=== PATIENT | female | born 1965 | race Caucasian/White ===

== ENCOUNTER 2024-06-30 20:52 | Observation (INO) ==
--- NOTE | 2024-06-30 21:33 | Emergency Department Note ---
HPI - Seizure General Chief Complaint: Seizure Stated Complaint: seizure Time Seen by Provider: 06/30/24 21:02 Source: patient and family (son) Mode of arrival: walk-in Limitations: altered mental status (Pt can answer some questions and carry on a conversation, but cannot recall the date) History of Present Illness HPI Narrative: 59-year-old female presents to the ED, accompanied by her son, with complaints of seizure-like activity that occurred approximately 1 hour prior to arrival. Son reports patient was sitting in her chair after just getting home from work and changing into her pajamas when her arms pulled up and began shaking and patient had positive loss of consciousness. En route to hospital, patient reportedly had a second episode with similar appearance and lasting ~ the same amount of time. Son states seizure activity lasted approximately 20 seconds with a period of approximately 15 minutes of confusion after seizure activity stops. Patient and son report patient has been worked up by neurology and cardiology and is currently on no medications for seizures despite having multiple episodes in the past. 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; Second episode en route to hospital, ~ 10 min [employer]OCIATE PROFESSOR [employer]IC[employer]) Description of Episode: Reports loss of consciousness, tonic-clonic movement and post-event confusion; Denies bladder incontinence or bowel incontinence Duration of episode: 20 -: Reports second(s) Witnessed: Yes - by Bystander (son) Trauma: Yes (mild abrasions to lower lip (son denies fall/facial trauma)) Seizure History: Yes (recurrent episodes, last March 2024, no seizure meds, has had neuro eval) Place: home (and in car) Possible Precipitating Event: Reports none Associated symptoms: Reports confusion, shortness of breath and other (lightheadedness, nausea, chills, dysuria) Treatments prior to arrival: Reports none Commercial Driving History Are you currently using a commercial loan administrator's license (CDL) as a part of your employment, either self-employed or otherwise: No 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 Related Data Allergies Allergy/AdvReac Type Severity Reaction Status Date / Time No Known Drug Allergies Allergy Verified 07/01/24 00:23 Review of Systems Status of ROS 10 or more systems reviewed and unremark able except as noted in history and below Constitutional Reports: chills and fatigue; Denies: fever Eyes Denies: change in vision, blurry vision, light sensitivity, eye discomfort or eye discharge Ears, nose, mouth, and throat Reports: nasal congestion; Denies: throat pain, neck pain, throat swelling, difficulty swallowing, hoarseness or ear pain Cardiovascular Reports: edema (anna LE edema), swelling of feet/ankles and lightheadedness; Denies: chest pain or palpitations Respiratory Reports: shortness of breath and cough (dry); Denies: wheezing, pain on inspiration or chest congestion Gastrointestinal Reports: nausea; Denies: abdominal pain, vomiting, diarrhea, constipation, change in bowel habits or blood in stool Genitourinary Reports: painful urination; Denies: urinary frequency, urinary urgency, blood in urine, difficulty voiding, decreased urine ouput or pelvic pain Musculoskeletal Reports: back pain (chronic low back pain (no change)) and extremity swelling (bilateral lower extremity edema); Denies: neck pain, extremity pain, joint pain, limited range of motion or muscle weakness Integumentary/Breast Denies: rash, itching, changes in skin color or jaundice Neurological Reports: dizziness (described as lightheadedness), difficulty communicating thoughts and seizure-like activity; Denies: headache, numbness in extremities, weakness in extremities, lack of coordination or slurred speech Psychiatric Reports: difficulty concentrating; Denies: anxiety Endocrine Reports: excessive thirst and fatigue; Denies: excessive urination Hematologic/Lymphatic Denies: easy bruising or easy bleeding Allergic/Immunologic Denies: hives, throat swelling, tongue swelling, facial swelling, wheezing, itchy eyes or seasonal allergies PFSH PFSH Medical History (Updated 06/30/24 @ 22:13 by Dior Angel APRN) Chronic UTI Chronic low back pain Sleep apnea Hypertension Seizure Surgical History (Updated 06/30/24 @ 22:13 by Dior Angel APRN) History of tubal ligation History of tonsillectomy History of hysterectomy Social History (Updated 06/30/24 @ 22:13 by Dior Angel APRN) Smoking status: never smoker Within the past year, how often did you have a drink containing alcohol: never Score interpretation: A score less than 3 is consistent with normal alcohol consumption. Non-prescribed substance use: denies use What is your current living situation: I presently have a place to live Problems where you live: no known problems Highest level of school completed/degree received: GED or equivalent Exam Constitutional: abnormal general appearance (disheveled), no apparent distress, abnormal body habitus (overweight), limitations noted (altered mental status) (intermittent confusion) and alert Vital Signs - 24 hr 06/30/24 20:52 06/30/24 21:00 06/30/24 21:30 Temperature 99.3 F Pulse Rate 82 78 Respiratory Rate 18 18 Blood Pressure 124/48 160/63 Pulse Oximetry 97 [address] thod Room Air Room Air Room Air 06/30/24 21:45 06/30/24 22:00 06/30/24 22:15 Temperature Pulse Rate 79 80 76 Respiratory Rate 16 18 16 Blood Pressure 169/76 153/56 123/66 Pulse Oximetry 96 [address] thod Room Air Room Air Room Air 06/30/24 22:30 06/30/24 22:45 06/30/24 23:00 Temperature Pulse Rate 68 67 66 Respiratory Rate 17 16 15 Blood Pressure 115/62 142/67 116/61 Pulse [facility] 97 96 [facility] 06/30/24 23:15 06/30/24 23:30 07/01/24 00:00 Temperature Pulse Rate 69 82 65 Respiratory Rate 18 19 15 Blood Pressure 136/69 165/77 131/64 Pulse Oximetry [address] thod Room Air Room Air Room Air HENMT: normocephalic, head/scalp traumatic (abrasion) (lower lip, superficial), hearing grossly normal bilaterally, external ears normal, TMs normal bilaterally, nasal mucous membranes abnormal (nasal discharge) (milc clear rhinorrhea), external nose normal, oral mucous membranes abnormal (dry) and oropharynx abnormal (erythema) (mild pharyngeal erythema) Eyes: PERRL, EOMs intact bilaterally, conjunctivae normal, no scleral icterus, alignment normal and periorbital findings normal Neck/C-Spine: visual inspection normal, trachea midline, cervical spine nontender, cervical full ROM noted, supple and no meningeal signs Lymph: no lymphadenopathy noted Chest: inspection of chest normal and palpation of chest normal Respiratory: breath sounds equal bilaterally, normal respiratory effort, clear to auscultation bilaterally, no wheezes, no rales and no use of accessory muscles Cardiovascular: normal heart rate noted and regular rhythm noted Gastrointestinal: abdomen normal to inspection, abdomen soft to palpation, nontender to palpation, nondistended, normoactive bowel sounds, no hepatosplenomegaly and no masses Genitourinary: CVA tenderness noted (bilateral, mild) and bladder normal to palpation Back/Pelvis: spine normal to inspection, no thoracic spine tenderness, no lumbar spine tenderness, thoracic spine ROM normal and lumbar spine ROM normal Extremities: abnormal to inspection (+2 bilateral LE edema), abnormal to palpa tion, no tenderness, full ROM and no deformity Neurology: data analytics architect II-XII intact, no movement abnormality noted, no focal motor deficit noted, no sensory deficits noted, deep tendon reflexes 2+ bilaterally, gait normal, speech normal, coordination normal, no pronator drift noted, no fasciculations noted and GCS calculation - Eye opening: Spontaneous Verbal response: Confused (intermittently) Motor response: Obey commands Dennis Coma Scale total score: 14 Psychiatry: mental status grossly normal, orientation abnormal (disoriented to time), thought process normal, cooperative and affect normal Skin: skin color normal, no rash, wound(s) noted Reports (superficial) (abrasion to lower lip), skin turgor abnormal Reports (edematous) (bilateral LE's) and no jaundice Course Vital Signs Vital signs: Vital Signs Pulse Oximetry 97 06/30/24 20:52 Oxygen Delivery Method Room Air 06/30/24 20:52 Temperature 99 F 07/01/24 01:30 Pulse Rate 69 07/01/24 01:30 Respiratory Rate 14 07/01/24 01:30 Blood Pressure 118/75 07/01/24 01:30 Pulse Oximetry 97 07/01/24 01:30 Oxygen Delivery Method Room Air 07/01/24 01:00 MDM - Seizure MDM Narrative Medical decision making narrative: Pt with 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 Also, pt reports she has been seen by both cardiology and neurology for similar episodes in the past and states she was never put on any medication. A third seizure was witnessed while in ED. 1mg IV Ativan immediately stopped the seizure activity. Pt loaded with Keppra 1500mg IV. CPK is elevated which is consistent with pt having had a seizure. Troponin WNL. CBC and CMP are essentially unremarkable. UA is within normal limits except for 1+ glucose, 1+ occult blood, 2-5 RBCs, 0-2 WBCs, few epithelial cells, trace bacteria, few mucus. Urine culture pending. UDS is positive for Methadone. Pt reports she takes Methadone 10mg PO TID. Confirmed through [facility] FISHERMAN Aware. Flu, strep and COVID swabs are all negative. CT head without contrast reveals no acute intracranial abnormality. Chest x-ray reveals cardiomegaly with pulmonary vascular prominence. D Dimer is elevated at 931H. CT angio chest (PE protocol) with contrast reveals no evidence of pulmonary embolism. EKG is without evidence of acute cardiopulmonary process. I have discussed the clinical case, including pertinent positives and negatives with Janeen in utilization review, and the need for further testing/observation in the inpatient arena given patient has had 3 seizures, 2 prior to arrival and 1 witnessed in the ED, this evening. Janeen agrees patient meets criteria for for admission to observation status. I have made the patient and family aware of the current disposition plan and they are in agreement. Differential Diagnosis Differential diagnosis: Likely intractable seizure disorder, febrile convulsion, focal seizure, generalized seizure, new onset seizure, epileptic seizure, status epilepticus and other (brain mass, ICH, syncope, arrhythmia, dehydration, influenza, COVID, Strep, pulmonary embolism) Medical Records Attestation: I reviewed the patient's medical records. Lab Data Attestation: I reviewed the patient's lab results. Labs: Lab Results 06/30/24 06/30/24 Range/Units 20:55 22:45 WBC 9.2 (4.3-9.3) K/uL RBC 4.7 (4.00-5.50) M/uL Hgb 13.2 (12.5-15.8) gm/dL Hct 39.8 (35.9-46.7) % MCV 85.5 (81.0-93.7) fl MCH 28.4 (27.6-32.2) pg MCHC 33.2 (33.1-35.3) g/dl RDW 14.3 H (11.4-14.2) % Plt Count 175 (152-353) K/uL MPV 9.9 (6.9-10.8) fl Gran % 80.7 H (47.8-71.3) % Lymph % (Auto) 12.4 L (20.0-43.0) % [place] % (Auto) 5.7 (3.6-9.8) % Eos % (Auto) 0.7 (0.4-2.8) % Baso % (Auto) 0.5 (0.1-0.85) Lymph # (Auto) 1.1 (1.1-3.1) [place] # (Auto) 0.5 L (1.1-3.1) Eos # (Auto) 0.1 (0.0-0.2) Baso # (Auto) 0.0 (0.0-0.1) Absolute Gran (auto) 7.4 H (2.3-6.0) D-Dimer 931 H (100-600) ng/mL Sodium 138 (136-145) mmol/L Potassium 4.9 (3.6-5.2) mmol/L Chloride 102.0 (98-107) mmol/L Carbon Dioxide 22 (21-32) mmol/L Anion Gap 14.0 (4-14) mEq/L BUN 16 (7-18) mg/dL Creatinine 1.1 (0.6-1.3) mg/dL Estimated GFR 57.9 (>59.9) Glucose 151 H (70-110) mg/dL Calcium 8.8 (8.5-10.1) mg/dL Total Bilirubin 0.26 (0.0-1.0) mg/dL AST 26 (15-37) U/L ALT 33 (30-65) U/L Alkaline Phosphatase 87 (50-136) U/L Total Creatine Kinase 249 H (26-192) U/L Troponin I High Sens 5.50 (4.0-60.4) ng/L B-Natriuretic Peptide 126.0 H (0-100) pg/mL Total Protein 7.3 (6.4-8.2) g/dL Albumin 3.8 (3.4-5.0) g/dL Urine Color Yellow (STRAW/YELL.) Urine Appearance Clear (CLEAR) Ur Specific [place] 1.015 (1.001-1.035) Urine Protein Negative (NEGATIVE) Urine Glucose (UA) 1+ (NORMAL) Urine Ketones Negative (NEGATIVE) Urine Occult Blood 1+ (NEG - TRACE) Urine Nitrite Negative (NEGATIVE) Urine Bilirubin Negative (NEGATIVE) Urine Urobilinogen Normal (NORMAL) Ur Leukocyte Esterase Negative (NEGATIVE) Urine RBC 2 - 5 (0 - 5) Urine WBC 0 - 2 ( 0 - 5) Ur Epithelial Cells Few (Few/HPF) Amorphous Sediment Negative (Negative) Urine Bacteria Trace (Negative) Urine Mucus Few (Negative) Urine Trichomonas Negative (Negative) Urine Yeast Negative (Negative) Fluid pH 6.5 (5 - 9) Urine Opiates Screen Neg. (NEGATIVE) Urine Methadone Screen Pos. (NEGATIVE) Barbiturate Screen Neg. (NEGATIVE) Ur Phencyclidine Scrn Neg. (NEGATIVE) Amphetamines Screen Neg. (NEGATIVE) U Benzodiazepines Scrn Neg. (NEGATIVE) Urine Cocaine Screen Neg. (NEGATIVE) U Marijuana (THC) Screen Neg. (NEGATIVE) COVID-19 (ROBBI) Not detected (Not Detectd) Influenza Type A Ag Negative (Negative) Influenza Type B Ag Negative (Negative) Streptococcus Screen Negative (Negative) Imaging Data Imaging ordered: Chest x-ray, CT scan - chest (CT angio chest (PE protocol)) and CT scan - head (without contrast) Attestation: I have reviewed the pertinent imaging results. Radiologist's impression: EXAM: CT HEAD/BRAIN WO CON HISTORY: syncope vs seizuresyncope vs seizure; COMPARISON: 10/27/2023 TECHNIQUE: Multiple axial images of the head were performed from the skullbase to the vertex using standard departmental protocol. Sagittal and coronal reformatted images were performed. Dose reduction techniques including Automated Exposure Control (AEC) and adjustment of mA and kV were utilized. FINDINGS: The sulci, cisterns and ventricles are age appropriate. There is no evidence of acute territorial infarction, hemorrhage, mass, mass effect or midline shift. There are no abnormal intra-axial or extra-axial fluid collections. The visualized paranasal sinuses and mastoid air cells are predominantly clear. IMPRESSION: No evidence of acute intracranial abnormality. THIS IS AN ELECTRONICALLY VERIFIED FINAL REPORT 06/30/2024 10:13 PM - Electronically signed by Carl Calderon MD EXAM: XR CHEST 1V HISTORY: Shortness of breath COMPARISON: October 27, 2023 TECHNIQUE: 1 frontal view of the chest FINDINGS: Trachea is midline. Heart size is enlarged. There is pulmonary vascular prominence. IMPRESSION: Cardiomegaly with pulmonary vascular prominence. THIS IS AN ELECTRONICALLY VERIFIED FINAL REPORT 06/30/2024 11:25 PM - Electronically signed by Dre Putnam MD EXAM: CTA CHEST WITH CONTRAST HISTORY: SOB, Elevated D DimerSOB, Elevated D Dimer; COMPARISON: None. TECHNIQUE: Axial images were acquired of the chest with IV contrast for a CT angiogram. Coronal and sagittal images were provided. All images were reviewed in a variety of windows and levels. 3D 8 mm thick MIPS images were provided. RADIATION REDUCTION TECHNIQUE: Automated exposure control, Adjustment of the mA and/or kV according to patient size, or iterative reconstruction techniques were used. 8 mm thick axial MIPS images were provided. FINDINGS: THYROID GLAND: The thyroid gland is unremarkable. HEART AND VESSELS: The heart size is within normal limits. There is no evidence of a pericardial effusion. The thoracic aorta is normal in size without evidence of aneurysm or dissection. The main pulmonary artery size is within normal limits. There are no filling defects seen in the visualized pulmonary arteries to suggest a pulmonary embolism. LYMPHNODES: There is no evidence of axillary, mediastinal, or hilar lymphadenopathy, AIRWAY: The trachea and mainstem bronchi are patent. No intraluminal lesions are seen. LUNGS: The lungs are clear bilaterally. There is no evidence of consolidation, pleural effusion, or pneumothorax. ESOPHAGUS: The esophagus is grossly unremarkable. BONES: The visualized bones demonstrate degenerative changes. There are no concerning lytic or blastic lesions identified. UPPER ABDOMINAL STRUCTURES: The visualized portions of the upper abdominal structures are unremarkable. IMPRESSION: Negative CT pulmonary angiogram; no evidence of pulmonary embolic disease. THIS IS AN ELECTRONICALLY VERIFIED FINAL REPORT 06/30/2024 11:54 PM - Electronically signed by Carl Calderon MD ECG Data Attestation: I personally reviewed and interpreted this ECG as follows: ECG interpretation date: 06/30/24 ECG interpretation time: 22:18 Prior ECG tracings: not available for review Interpretation: Normal sinus rhythm Rate 69 RR 872 Normal P waves Normal MONTY LVH by voltage Inverted T waves in leads III, V1 Flattened T waves in leads aVF Normal QT/QTc interval Critical Care Time Critical Care Time Critical Care Time: Yes Total Critical Care Time: 50 Attestation: Workup included CBC, CMP, CPK, troponin, BNP, D-dimer, flu, strep, COVID, UA, UDS, EKG, chest x-ray, CT head without contrast, CT angio chest (PE protocol), urine culture. Patient had a total of 3 episodes of seizure activity, confirmed with elevated CPK. Patient loaded with 1500 mg IV Keppra and 1 mg IV Ativan. No further seizure activity noted. Arrangements made for patient to be admitted to observation status. Multiple updates with patient and family. Discharge Plan Discharge Patient Disposition: Admitted As Observation Condition: Improved Clinical Impression: Generalized seizure, Dysuria, Methadone dependence, Elevated d-dimer, Elevated brain natriuretic peptide (BNP) level, Glucosuria, Hematuria, Cardiomegaly Interventions: ED Discharge Assessment Last Done: 07/01/24 01:30 ED Discharge Vital Sign Last Done: 07/01/24 01:30 Emergency Department Charge Sheet Last Done: 06/30/24 23:59 Time of Disposition: 00:10 Discharge Date/Time: 07/01/24 01:30
[2024-06-30] MEDS: 0.9 % SODIUM CHLORIDE 1000 ML 1,000 ML IV STA (21:39)
[2024-06-30 21:42] LABS: Basophils%(Percent) Auto 0.5 (0.1-0.85); Eosinophils#(Absolute)Auto 0.1 (0.0-0.2); Eosinophils%(Percent) Auto 0.7 % (0.4-2.8); Granulocytes % - Auto 80.7 % (47.8-71.3); Granulocytes#(Absolute)- Auto 7.4 (2.3-6.0); Hematocrit 39.8 % (35.9-46.7); Mean Corpuscular Volume 85.5 fl (81.0-93.7); Monocytes #(Absolute)- Auto 0.5 (1.1-3.1); Monocytes %(Percent)- Auto 5.7 % (3.6-9.8); Platelet Count 175 K/uL (152-353); White Blood Count 9.2 K/uL (4.3-9.3)
[2024-06-30] MEDS: LORazepam 2 MG/ML VIAL IVP ONE (21:44)
[2024-06-30 21:55] LABS: Potassium 4.9 mmol/L (3.6-5.2)
[2024-06-30 21:58] LABS: Amphetamine Screen Urine NEG. (NEGATIVE); Cannabinoid Screen Urine NEG. (NEGATIVE); Cocaine Screen Urine NEG. (NEGATIVE); Methadone Screen Urine POS. (NEGATIVE); Opiate Screen Urine NEG. (NEGATIVE)
[2024-06-30] MEDS ORDERED: levETIRAcetam 500 MG/5 ML VIAL ONE (22:02)
[2024-06-30] MEDS ORDERED: 0.9 % SODIUM CHLORIDE 100ML 100 ML IV ONE (22:04)
[2024-06-30 22:06] LABS: PH BODY FLUID EXCP BLOOD 6.5 (5 - 9); Specific Gravity Urine 1.015 (1.001-1.035); Urine Appearance CLEAR (CLEAR); Urine Blood 1+ (NEG - TRACE); Urine Color YELLOW (STRAW/YELL.); Urine Urobilinogen Normal (NORMAL)
[2024-06-30 22:13] LABS: Urine Amorphous Sediment Negative (Negative); Urine Yeast Negative (Negative)
[2024-06-30] MEDS: SODIUM CHLORIDE 0.9% IV STA (22:20)
[2024-06-30] MEDS: LEVETIRACETAM IV STA (22:20)
[2024-07-01] MEDS ORDERED: ONDANSETRON HCL/PF 4 MG/2 ML VIAL INJ PRN (01:14)
[2024-07-01] MEDS: PANTOPRAZOLE SODIUM 40 MG TABLET.DR PO ONE (02:00)
[2024-07-01] MEDS: ACETAMINOPHEN 500 MG TABLET PO PRN (05:23)
[2024-07-01] MEDS: IBUPROFEN 400 MG TABLET PO PRN (05:24)
[2024-07-01] MEDS: levETIRAcetam 500 MG TABLET PO SCH ×2 (09:38→20:08)
[2024-07-01] MEDS: ENOXAPARIN SODIUM 40 MG/0.4 ML SYRINGE SUBQ SCH (09:38)
[2024-07-01] MEDS: 0.9 % SODIUM CHLORIDE 1000 ML 1,000 ML IV SCH (10:36)
[2024-07-01 10:51] LABS: Basophils%(Percent) Auto 0.2 (0.1-0.85); Eosinophils%(Percent) Auto 0.2 % (0.4-2.8); Granulocytes % - Auto 80.5 % (47.8-71.3); Granulocytes#(Absolute)- Auto 6.2 (2.3-6.0); Mean Corpuscular Volume 84.4 fl (81.0-93.7); Monocytes #(Absolute)- Auto 0.6 (1.1-3.1); Monocytes %(Percent)- Auto 7.4 % (3.6-9.8); Platelet Count 154 K/uL (152-353); White Blood Count 7.7 K/uL (4.3-9.3)
[2024-07-01 10:54] LABS: Potassium 3.8 mmol/L (3.6-5.2)
--- NOTE | 2024-07-01 11:39 | History & Physical Report ---
H&P: HPI History of Present Illness Chief complaint: seizure, dysuria, methadone dependence, elevated Narrative: 59-year-old female presents to the ED, accompanied by her son, with complaints of seizure-like activity that occurred approximately 1 hour prior to arrival. Son reports patient was sitting in her chair after just getting home from work and changing into her pajamas when her arms pulled up and began shaking and patient had positive loss of consciousness. En route to hospital, patient reportedly had a second episode with similar appearance and lasting ~ the same amount of time. Son states seizure activity lasted approximately 20 seconds with a period of approximately 15 minutes of confusion after seizure activity stops. Patient and son report patient has been worked up by neurology and cardiology and is currently on no medications for seizures despite having multiple episodes in the past. Patient admitted to med/surg for further observation and treatment. Review of Systems Status of ROS 10 or more systems reviewed and unremark able except as noted in history and below Constitutional Reports: chills and fatigue; Denies: fever Eyes Denies: change in vision, blurry vision, light sensitivity, eye discomfort or eye discharge Ears, nose, mouth, and throat Reports: nasal congestion; Denies: throat pain, neck pain, throat swelling, difficulty swallowing, hoarseness or ear pain Cardiovascular Reports: edema (anna LE edema), swelling of feet/ankles, lightheadedness and shortness of breath with exertion; Denies: chest pain or palpitations Respiratory Reports: shortness of breath and cough (dry); Denies: wheezing, pain on inspiration or chest congestion Gastrointestinal Reports: nausea; Denies: abdominal pain, vomiting, diarrhea, constipation, difficulty swallowing, change in bowel habits or blood in stool Genitourinary Reports: painful urination; Denies: urinary frequency, urinary urgency, blood in urine, difficulty voiding, decreased urine ouput or pelvic pain Musculoskeletal Reports: back pain (chronic low back pain (no change)) and extremity swelling (bilateral lower extremity edema); Denies: neck pain, extremity pain, joint pain, limited range of motion or muscle weakness Integumentary/Breast Denies: rash, itching, changes in skin color or jaundice Neurological Reports: dizziness (described as lightheadedness), difficulty communicating thoughts and seizure-like activity; Denies: headache, numbness in extremities, weakness in extremities, lack of coordination or slurred speech Psychiatric Reports: difficulty concentrating; Denies: anxiety Endocrine Reports: excessive thirst and fatigue; Denies: excessive urination Hematologic/Lymphatic Denies: easy bruising or easy bleeding Allergic/Immunologic Denies: hives, throat swelling, tongue swelling, facial swelling, wheezing, itchy eyes or seasonal allergies PFSH PFS Medical History (Updated 07/01/24 @ 11:36 by RUBEN Baez) Chronic UTI Chronic low back pain Sleep apnea Hypertension Seizure Surgical History (Updated 06/30/24 @ 22:13 by Dior Angel APRN) History of tubal ligation History of tonsillectomy History of hysterectomy Social History (Updated 06/30/24 @ 22:13 by Dior Angel APRN) Smoking status: never smoker Within the past year, how often did you have a drink containing alcohol: never Score interpretation: A score less than 3 is consistent with normal alcohol consumption. Non-prescribed substance use: denies use What is your current living situation: I presently have a place to live Problems where you live: no known problems Highest level of school completed/degree received: GED or equivalent Meds Home Medications and Allergies Home Medications Medication Instructions Recorded Confirmed Type acebutolol 200 mg capsule 200 mg PO BID 07/01/24 07/01/24 History hydroxyzine HCl 25 mg tablet 25 mg PO TID PRN nausea and 07/01/24 07/01/24 History vomiting lisinopril 10 mg tablet 10 mg PO DAILY 07/01/24 07/01/24 History pantoprazole 40 mg tablet,delayed 40 mg PO QAM 07/01/24 07/01/24 History release Allergies Allergy/AdvReac Type Severity Reaction Status Date / Time No Known Drug Allergies Allergy Verified 07/01/24 00:23 Exam Exam: Patient is estrada's position upon entering room for exam. Constitutional: abnormal general appearance (disheveled), no apparent distress, abnormal body habitus (obese), no limitations and alert Vital Signs - 24 hr 06/30/24 20:52 06/30/24 21:00 06/30/24 21:30 Temperature 99.3 F Pulse Rate 82 78 Pulse Rate [Bilate ral] Respiratory Rate 18 18 Blood Pressure 124/48 160/63 Blood Pressure [Le ft Radial Artery] Pulse Oximetry 97 97 97 Oxygen Delivery Me thod Room Air Room Air Room Air 06/30/24 21:45 06/30/24 22:00 06/30/24 22:15 Temperature Pulse Rate 79 80 76 Pulse Rate [Bilate ral] Respiratory Rate 16 18 16 Blood Pressure 169/76 153/56 123/66 Blood Pressure [Le ft Radial Artery] Pulse Oximetry 96 95 96 Oxygen Delivery [facility] Room Air Room Air Room Air 06/30/24 22:30 06/30/24 22:45 06/30/24 23:00 Temperature Pulse Rate 68 67 66 Pulse Rate [Bilate ral] Respiratory Rate 17 16 15 Blood Pressure 115/62 142/67 116/61 Blood Pressure [Le ft Radial Artery] Pulse Oximetry 97 96 96 Oxygen Delivery [facility] Room Air Room Air Room Air 06/30/24 23:15 06/30/24 23:30 07/01/24 00:00 Temperature Pulse Rate 69 82 65 Pulse Rate [Bilate ral] Respiratory Rate 18 19 15 Blood Pressure 136/69 165/77 131/64 Blood Pressure [Le ft Radial Artery] Pulse Oximetry 97 97 95 Oxygen Delivery [facility] Room Air Room Air Room Air 07/01/24 00:30 07/01/24 01:00 07/01/24 01:30 Temperature 99 F Pulse Rate 62 64 69 Pulse Rate [Bilate ral] Respiratory Rate 15 13 14 Blood Pressure 121/64 125/70 118/75 Blood Pressure [Le ft Radial Artery] Pulse Oximetry 96 99 97 Oxygen Delivery [facility] Room Air Room Air 07/01/24 03:53 07/01/24 08:00 Temperature 98.6 F 98.0 F Pulse Rate Pulse Rate [Bilate ral] 68 59 L Respiratory Rate 19 18 Blood Pressure Blood Pressure [Le ft Radial Artery] 100/61 116/59 Pulse Oximetry 97 97 Oxygen Delivery [facility] Room Air Room Air HENMT: normocephalic, head/scalp traumatic (abrasion) (lower lip, superficial), hearing grossly normal bilaterally, external ears normal, TMs normal bilaterally, nasal mucous membranes abnormal (nasal discharge) (milc clear rhinorrhea), external nose normal, oral mucous membranes abnormal (dry) and oropharynx abnormal (erythema) (mild pharyngeal erythema) Eyes: PERRL, EOMs intact bilaterally, conjunctivae normal, no scleral icterus, alignment normal and periorbital findings normal Neck/C-Spine: visual inspection normal, trachea midline, cervical spine nontender, cervical full ROM noted, supple and no meningeal signs Lymph: no lymphadenopathy noted Chest: inspection of chest normal and palpation of chest normal Respiratory: breath sounds equal bilaterally, normal respiratory effort, clear to auscultation bilaterally, no wheezes, no rales and no use of accessory muscles Cardiovascular: normal heart rate noted and regular rhythm noted Gastrointestinal: abdomen normal to inspection, abdomen soft to palpation, nontender to palpation, nondistended, normoactive bowel sounds, no hepatosplenomegaly and no masses Genitourinary: CVA tenderness noted (bilateral, mild) and bladder normal to palpation Back/Pelvis: spine normal to inspection, no thoracic spine tenderness, no lumbar spine tenderness, thoracic spine ROM normal and lumbar spine ROM normal Extremities: abnormal to inspection (+2 bilateral LE edema), abnormal to palpation, no tenderness, full ROM and no deformity Neurology: physical director II-XII intact, no movement abnormality noted, no focal motor deficit noted, no sensory deficits noted, deep tendon reflexes 2+ bilaterally, gait normal, speech normal, coordination normal, no pronator drift noted, no fasciculations noted and GCS calculation - Eye opening: Spontaneous Verbal response: Orientated Motor response: Obey commands Dennis Coma Scale total score: 14 Psychiatry: mental status grossly normal, orientation abnormal (disoriented to time), thought process normal, cooperative and affect normal Skin: skin color normal, no rash, wound(s) noted Reports (superficial) (lan daniel to lower lip), skin turgor abnormal Reports (edematous) (bilateral LE's) and no jaundice Assessment and Plan Assessment and Plan (1) Seizure: Code(s): R56.9 - Unspecified convulsions (2) Dysuria: Code(s): R30.0 - Dysuria (3) Methadone dependence: Code(s): F11.20 - Opioid dependence, uncomplicated (4) Elevated d-dimer: Code(s): R79.89 - Other specified abnormal findings of blood chemistry (5) Elevated brain natriuretic peptide (BNP) level: Code(s): R79.89 - Other specified abnormal findings of blood chemistry (6) Hematuria: Qualifiers: Hematuria type: unspecified type Qualified Code(s): R31.9 - Hematuria, unspecified Code(s): R31.9 - Hematuria, unspecified Plan Sodium Chloride 1,000 mls @ 200 mls/hr IV CONT Enoxaparin Sodium 40 mg SUBQ DAILY Levetiracetam 500 mg PO BID Acetaminophen 1,000 mg PO Q6H PRN Ibuprofen 600 mg PO Q8H PRN Hydrocodone Bitart/Acetaminophen 5/325 mg PO Q6H PRN Ondsetron Hcl 4 mg INJ Q6H PRN Continue to monitor labs and symptoms. Results Labs Labs: CBC WBC 7.7 K/uL (4.3-9.3) 07/01/24 10:33 RBC 4.3 M/uL (4.00-5.50) 07/01/24 10:33 Hgb 12.1 gm/dL (12.5-15.8) L 07/01/24 10:33 Hct 36.0 % (35.9-46.7) 07/01/24 10:33 MCV 84.4 fl (81.0-93.7) 07/01/24 10:33 MCH 28.3 pg (27.6-32.2) 07/01/24 10:33 MCHC 33.5 g/dl (33.1-35.3) 07/01/24 10:33 RDW 14.2 % (11.4-14.2) 07/01/24 10:33 Plt Count 154 K/uL (152-353) 07/01/24 10:33 MPV 9.5 fl (6.9-10.8) 07/01/24 10:33 Gran % 80.5 % (47.8-71.3) H 07/01/24 10:33 Lymph % (Auto) 11.7 % (20.0-43.0) L 07/01/24 10:33 [place] % (Auto) 7.4 % (3.6-9.8) 07/01/24 10:33 Eos % (Auto) 0.2 % (0.4-2.8) L 07/01/24 10:33 Baso % (Auto) 0.2 (0.1-0.85) 07/01/24 10:33 Lymph # (Auto) 0.9 (1.1-3.1) L 07/01/24 10:33 [place] # (Auto) 0.6 (1.1-3.1) L 07/01/24 10:33 Eos # (Auto) 0.0 (0.0-0.2) 07/01/24 10:33 Baso # (Auto) 0.0 (0.0-0.1) 07/01/24 10:33 Absolute Gran (auto) 6.2 (2.3-6.0) H 07/01/24 10:33 BMP Sodium 137 mmol/L (136-145) 07/01/24 10:33 Potassium 3.8 mmol/L (3.6-5.2) 07/01/24 10:33 Chloride 99.0 mmol/L (98-107) 07/01/24 10:33 Carbon Dioxide 28 mmol/L (21-32) 07/01/24 10:33 Anion Gap 10.0 mEq/L (4-14) 07/01/24 10:33 BUN 13 mg/dL (7-18) 07/01/24 10:33 Creatinine 0.9 mg/dL (0.6-1.3) 07/01/24 10:33 Estimated GFR 73.6 (>59.9) 07/01/24 10:33 Glucose 106 mg/dL (70-110) 07/01/24 10:33 Calcium 8.5 mg/dL (8.5-10.1) 07/01/24 10:33 Phosphorus 3.8 mg/dL (2.5-4.9) 07/01/24 04:20 Magnesium 2.4 mg/dL (1.8-2.4) 07/01/24 04:20 Total Bilirubin 0.38 mg/dL (0.0-1.0) 07/01/24 10:33 AST 26 U/L (15-37) 07/01/24 10:33 ALT 31 U/L (30-65) 07/01/24 10:33 Alkaline Phosphatase 65 U/L (50-136) 07/01/24 10:33 Total Protein 6.3 g/dL (6.4-8.2) L 07/01/24 10:33 Albumin 3.3 g/dL (3.4-5.0) L 07/01/24 10:33 Cardiac Enzymes Troponin I High Sens 5.50 ng/L (4.0-60.4) 06/30/24 20:55 Liver Function Total Bilirubin 0.38 mg/dL (0.0-1.0) 07/01/24 10:33 AST 26 U/L (15-37) 07/01/24 10:33 ALT 31 U/L (30-65) 07/01/24 10:33 Alkaline Phosphatase 65 U/L (50-136) 07/01/24 10:33 Total Protein 6.3 g/dL (6.4-8.2) L 07/01/24 10:33 Albumin 3.3 g/dL (3.4-5.0) L 07/01/24 10:33 Urine Urine Color Yellow (STRAW/YELL.) 06/30/24 20:55 Urine Appearance Clear (CLEAR) 06/30/24 20:55 Ur Specific [place] 1.015 (1.001-1.035) 06/30/24 20:55 Urine Protein Negative (NEGATIVE) 06/30/24 20:55 Urine Glucose (UA) 1+ (NORMAL) 06/30/24 20:55 Urine Ketones Negative (NEGATIVE) 06/30/24 20:55 Urine Occult Blood 1+ (NEG - TRACE) 06/30/24 20:55 Urine Nitrite Negative (NEGATIVE) 06/30/24 20:55 Urine Bilirubin Negative (NEGATIVE) 06/30/24 20:55 Urine Urobilinogen Normal (NORMAL) 06/30/24 20:55 Ur Leukocyte Esterase Negative (NEGATIVE) 06/30/24 20:55 Imaging Imaging ordered: Chest x-ray, CT scan - chest and CT scan - head Radiologist's impression: XR CHEST 1V Date of Service: 06/30/24 HISTORY: Shortness of breath COMPARISON: October 27, 2023 TECHNIQUE: 1 frontal view of the chest FINDINGS: Trachea is midline. Heart size is enlarged. There is pulmonary vascular prominence. IMPRESSION: Cardiomegaly with pulmonary vascular prominence. CTA CHEST WITH CONTRAST Date of Service: 06/30/24 HISTORY: SOB, Elevated D DimerSOB, Elevated D Dimer; COMPARISON: None. TECHNIQUE: Axial images were acquired of the chest with IV contrast for a CT angiogram. Coronal and sagittal images were provided. All images were reviewed in a variety of windows and levels. 3D 8 mm thick MIPS images were provided. RADIATION REDUCTION TECHNIQUE: Automated exposure control, Adjustment of the mA and/or kV according to patient size, or iterative reconstruction techniques were used. 8 mm thick axial MIPS images were provided. FINDINGS: THYROID GLAND: The thyroid gland is unremarkable. HEART AND VESSELS: The heart size is within normal limits. There is no evidence of a pericardial effusion. The thoracic aorta is normal in size without evidence of aneurysm or dissection. The main pulmonary artery size is within normal limits. There are no filling defects seen in the visualized pulmonary arteries to suggest a pulmonary embolism. LYMPHNODES: There is no evidence of axillary, mediastinal, or hilar lymphadenopathy, AIRWAY: The trachea and mainstem bronchi are patent. No intraluminal lesions are seen. LUNGS: The lungs are clear bilaterally. There is no evidence of consolidation, pleural effusion, or pneumothorax. ESOPHAGUS: The esophagus is grossly unremarkable. BONES: The visualized bones demonstrate degenerative changes. There are no co ncerning lytic or blastic lesions identified. UPPER ABDOMINAL STRUCTURES: The visualized portions of the upper abdominal structures are unremarkable. IMPRESSION: Negative CT pulmonary angiogram; no evidence of pulmonary embolic disease. CT HEAD/BRAIN WO CON Date of Service: 06/30/24 HISTORY: syncope vs seizuresyncope vs seizure; COMPARISON: 10/27/2023 TECHNIQUE: Multiple axial images of the head were performed from the skullbase to the vertex using standard departmental protocol. Sagittal and coronal reformatted images were performed. Dose reduction techniques including Automated Exposure Control (AEC) and adjustment of mA and kV were utilized. FINDINGS: The sulci, cisterns and ventricles are age appropriate. There is no evidence of acute territorial infarction, hemorrhage, mass, mass effect or midline shift. There are no abnormal intra-axial or extra-axial fluid collections. The visualized paranasal sinuses and mastoid air cells are predominantly clear. IMPRESSION: No evidence of acute intracranial abnormality.
[2024-07-01] MEDS ORDERED: hydrOXYzine HCL 25 MG TABLET PO PRN (14:00)
[2024-07-01] MEDS: polyethylene glycoL 3350 17 GM POWD.PACK PO SCH (15:06)
[2024-07-01] MEDS: lisinopriL 10 MG TABLET PO SCH (15:06)
[2024-07-01] MEDS: PANTOPRAZOLE SODIUM 40 MG TABLET.DR PO SCH (15:06)
[2024-07-01] MEDS: HYDROCODONE/ACETAMINOPHEN 5/325 MG TABLET PO PRN (17:06)
[2024-07-01] MEDS: atenoloL 50 MG TABLET PO SCH (20:08)
[2024-07-01] MEDS ORDERED: ACEBUTOLOL 200 MG PO SCH (21:00)
[2024-07-02 05:13] LABS: Basophils%(Percent) Auto 0.5 (0.1-0.85); Eosinophils%(Percent) Auto 1.2 % (0.4-2.8); Granulocytes % - Auto 63.3 % (47.8-71.3); Granulocytes#(Absolute)- Auto 2.5 (2.3-6.0); Hematocrit 31.9 % (35.9-46.7); Mean Corpuscular Volume 85.1 fl (81.0-93.7); Monocytes #(Absolute)- Auto 0.4 (1.1-3.1); Monocytes %(Percent)- Auto 9.8 % (3.6-9.8); Platelet Count 116 K/uL (152-353)
[2024-07-02 05:38] LABS: Potassium 4.7 mmol/L (3.6-5.2)
--- NOTE | 2024-07-02 12:45 | Progress Note ---
Progress Note: Subjective Subjective Interval history: Patient sitting up in bed. Nurses report no events overnight. Patient reports having a "feeling of going out" before she has what has been called a seizure. She has been to the neurologist who reports to her that "there is nothing wrong with me." Patient complains of intermittent pain to RUQ abdomen that is not new and calls it a "catch sometimes." Exam Constitutional: normal general appearance, no apparent distress, abnormal body habitus and alert Vital Signs - 24 hr 07/01/24 16:00 07/01/24 19:48 07/01/24 20:08 Temperature 98.4 F 98.6 F Pulse Rate 62 Pulse Rate [Bilate ral] 61 62 Respiratory Rate 18 17 Blood Pressure [Le ft Radial Artery] 118/55 123/58 Pulse Oximetry 99 98 Oxygen Delivery Me thod Room Air Room Air 07/01/24 21:47 07/01/24 23:59 07/02/24 04:00 Temperature 98.5 F 98.3 F Pulse Rate 64 Pulse Rate [Bilate ral] 57 L 55 L Respiratory Rate 18 16 Blood Pressure [Le ft Radial Artery] 96/45 100/58 Pulse Oximetry 96 97 Oxygen Delivery Al thod Room Air Room Air 07/02/24 07:51 07/02/24 11:50 Temperature 97.8 F 98.6 F Pulse Rate Pulse Rate [Bilate ral] 64 52 L Respiratory Rate 20 20 Blood Pressure [Le ft Radial Artery] 124/66 152/67 Pulse Oximetry 96 [facility] HENMT: normocephalic, head/scalp atraumatic, hearing grossly normal bilaterally, external ears normal and EACs normal Eyes: PERRL, EOMs intact bilaterally, conjunctivae normal, no scleral icterus and no papilledema Chest: inspection of chest normal Respiratory: breath sounds equal bilaterally, normal respiratory effort, clear to auscultation bilaterally, no wheezes and no rales Cardiovascular: normal heart rate noted, regular rhythm noted, no rub, no murmur and no JVD Gastrointestinal: abdomen normal to inspection, abdomen soft to palpation, nontender to palpation, nontender to percussion and nondistended Genitourinary: no CVA tenderness Extremities: normal to inspection, normal to palpation, no tenderness and full ROM Psychiatry: mental status grossly normal, oriented x3 and cooperative Skin: skin color normal, no rash, no lesions, no ecchymosis noted and no wound s Progress Note: Objective Labs Labs: CBC WBC 4.0 K/uL (4.3-9.3) L 07/02/24 04:50 RBC 3.7 M/uL (4.00-5.50) L 07/02/24 04:50 Hgb 10.7 gm/dL (12.5-15.8) L 07/02/24 04:50 Hct 31.9 % (35.9-46.7) L 07/02/24 04:50 MCV 85.1 fl (81.0-93.7) 07/02/24 04:50 MCH 28.5 pg (27.6-32.2) 07/02/24 04:50 MCHC 33.5 g/dl (33.1-35.3) 07/02/24 04:50 RDW 14.4 % (11.4-14.2) H 07/02/24 04:50 Plt Count 116 K/uL (152-353) L 07/02/24 04:50 MPV 9.5 fl (6.9-10.8) 07/02/24 04:50 Gran % 63.3 % (47.8-71.3) 07/02/24 04:50 Lymph % (Auto) 25.2 % (20.0-43.0) 07/02/24 04:50 [place] % (Auto) 9.8 % (3.6-9.8) 07/02/24 04:50 Eos % (Auto) 1.2 % (0.4-2.8) 07/02/24 04:50 Baso % (Auto) 0.5 (0.1-0.85) 07/02/24 04:50 Lymph # (Auto) 1.0 (1.1-3.1) L 07/02/24 04:50 [place] # (Auto) 0.4 (1.1-3.1) L 07/02/24 04:50 Eos # (Auto) 0.0 (0.0-0.2) 07/02/24 04:50 Baso # (Auto) 0.0 (0.0-0.1) 07/02/24 04:50 Absolute Gran (auto) 2.5 (2.3-6.0) 07/02/24 04:50 BMP Sodium 140 mmol/L (136-145) 07/02/24 04:50 Potassium 4.7 mmol/L (3.6-5.2) 07/02/24 04:50 Chloride 108.0 mmol/L (98-107) H 07/02/24 04:50 Carbon Dioxide 29 mmol/L (21-32) 07/02/24 04:50 Anion Gap 3.0 mEq/L (4-14) L 07/02/24 04:50 BUN 14 mg/dL (7-18) 07/02/24 04:50 Creatinine 0.9 mg/dL (0.6-1.3) 07/02/24 04:50 Estimated GFR 73.6 (>59.9) 07/02/24 04:50 Glucose 96 mg/dL (70-110) 07/02/24 04:50 Calcium 7.9 mg/dL (8.5-10.1) L 07/02/24 04:50 Phosphorus 3.1 mg/dL (2.5-4.9) 07/02/24 04:50 Magnesium 2.0 mg/dL (1.8-2.4) 07/02/24 04:50 Total Bilirubin 0.23 mg/dL (0.0-1.0) 07/02/24 04:50 AST 19 U/L (15-37) 07/02/24 04:50 ALT 27 U/L (30-65) L 07/02/24 04:50 Alkaline Phosphatase 53 U/L (50-136) 07/02/24 04:50 Total Protein 5.4 g/dL (6.4-8.2) L 07/02/24 04:50 Albumin 2.8 g/dL (3.4-5.0) L 07/02/24 04:50 Cardiac Enzymes Troponin I High Sens 5.50 ng/L (4.0-60.4) 06/30/24 20:55 Liver Function Total Bilirubin 0.23 mg/dL (0.0-1.0) 07/02/24 04:50 AST 19 U/L (15-37) 07/02/24 04:50 ALT 27 U/L (30-65) L 07/02/24 04:50 Alkaline Phosphatase 53 U/L (50-136) 07/02/24 04:50 Total Protein 5.4 g/dL (6.4-8.2) L 07/02/24 04:50 Albumin 2.8 g/dL (3.4-5.0) L 07/02/24 04:50 Urine Urine Color Yellow (STRAW/YELL.) 06/30/24 20:55 Urine Appearance Clear (CLEAR) 06/30/24 20:55 Ur Specific [place] 1.015 (1.001-1.035) 06/30/24 20:55 Urine Protein Negative (NEGATIVE) 06/30/24 20:55 Urine Glucose (UA) 1+ (NORMAL) 06/30/24 20:55 Urine Ketones Negative (NEGATIVE) 06/30/24 20:55 Urine Occult Blood 1+ (NEG - TRACE) 06/30/24 20:55 Urine Nitrite Negative (NEGATIVE) 06/30/24 20:55 Urine Bilirubin Negative (NEGATIVE) 06/30/24 20:55 Urine Urobilinogen Normal (NORMAL) 06/30/24 20:55 Ur Leukocyte Esterase Negative (NEGATIVE) 06/30/24 20:55 Progress Note: A&P Assessment and Plan (1) Seizure: (2) Dysuria: (3) Methadone dependence: (4) Elevated d-dimer: (5) Elevated brain natriuretic peptide (BNP) level: (6) Hematuria: Qualifiers: Hematuria type: unspecified type Qualified Code(s): R31.9 - Hematuria, unspecified Plan Decrease Sodium Chloride 1,000 mls @ 150 mls/hr IV CONT Enoxaparin Sodium 40 mg SUBQ DAILY Levetiracetam 500 mg PO BID Acetaminophen 1,000 mg PO Q6H PRN Ibuprofen 600 mg PO Q8H PRN Hydrocodone Bitart/Acetaminophen 5/325 mg PO Q6H PRN Ondsetron Hcl 4 mg INJ Q6H PRN Continue to monitor labs and symptoms. CPK in AM Fall Risk Details Munoz Fall Scale Risk Level: Moderate Fall Risk Current Medications: Current Medications Acetaminophen (Acetaminophen 500 Mg Tablet) 1,000 mg PO Q6H PRN PRN Reason: fever/pain Last Admin: 07/01/24 05:23 Dose: 1,000 mg Hydrocodone Bitart/Acetaminophen (Hydrocodone/Acetaminophen 5/325 Mg Tablet) 1 each PO Q6H PRN PRN Reason: chronic back pain Last Admin: 07/01/24 17:06 Dose: 1 each Atenolol (Atenolol 50 Mg Tablet) 50 mg PO BID [facility] [place] Last Admin: 07/02/24 09:45 Dose: 50 mg Enoxaparin Sodium (Enoxaparin Sodium 40 Mg/0.4 Ml Syringe) 40 mg SUBQ DAILY [facility] [place] Last Admin: 07/02/24 09:45 Dose: 40 mg Hydroxyzine HCl (Hydroxyzine Hcl 25 Mg Tablet) 25 mg PO TID PRN PRN Reason: nausea and vomiting Sodium Chloride (Sodium Chloride) 1,000 mls @ 150 mls/hr IV CONT [facility] [place] Last Admin: 07/02/24 10:37 Dose: 150 mls/hr Ibuprofen (Ibuprofen 400 Mg Tablet) 600 mg PO Q8H PRN PRN Reason: fever/pain Last Admin: 07/01/24 05:24 Dose: 600 mg Levetiracetam (Levetiracetam 500 Mg Tablet) 500 mg PO BID [facility] [place] Last Admin: 07/02/24 09:45 Dose: 500 mg Lisinopril (Lisinopril 10 Mg Tablet) 10 mg PO DAILY [facility] [place] Last Admin: 07/02/24 09:45 Dose: 10 mg Ondansetron HCl (Ondansetron Hcl/Pf 4 Mg/2 Ml Vial) 4 mg INJ Q6H PRN PRN Reason: Nausea Pantoprazole Sodium (Pantoprazole Sodium 40 Mg Tablet.) 40 mg PO QDAC [facility] [place] Last Admin: 07/02/24 06:33 Dose: 40 mg Polyethylene Glycol (Polyethylene Glycol 3350 17 Gm Powd.Pack) 17 gm PO DAILY [facility] [place] Last Admin: 07/02/24 09:45 Dose: 17 gm Time Spent With Patient Time: Total time spent is greater than 50% in coordination of care (as documented) at patient's floor/unit and/or counseling patient:
[2024-07-03] MEDS: FUROSEMIDE 40 MG/4 ML VIAL ONE (03:40)
[2024-07-03 05:28] LABS: Basophils%(Percent) Auto 0.4 (0.1-0.85); Eosinophils#(Absolute)Auto 0.1 (0.0-0.2); Monocytes #(Absolute)- Auto 0.5 (1.1-3.1); Platelet Count 133 K/uL (152-353)
[2024-07-03] MEDS ORDERED: FUROSEMIDE 40 MG/4 ML VIAL IV SCH (05:30)
[2024-07-03 05:34] LABS: Eosinophils%(Percent) Auto 1.1 % (0.4-2.8); Granulocytes#(Absolute)- Auto 4.2 (2.3-6.0); Hematocrit 34.6 % (35.9-46.7); Mean Corpuscular Volume 84.3 fl (81.0-93.7); Monocytes %(Percent)- Auto 8.3 % (3.6-9.8); White Blood Count 5.9 K/uL (4.3-9.3)
[2024-07-03 05:44] LABS: Potassium 3.4 mmol/L (3.6-5.2)
[2024-07-03 07:41] VITALS: BP 143/58; PULSE 54; RESP 20; TEMP 98.4
--- NOTE | 2024-07-03 11:12 | Discharge Summary ---
DS: Providers Provider Date of admission: 07/01/24 00:26 Primary care physician: Dre Morgan Attending physician on admission: Fely Kumar Attending physician on discharge: EVELIN WRIGHT Discharging clinician: EVELIN WRIGHT DS: Diagnosis Discharge Diagnosis (1) Seizure: Assessment and plan: Discharged with Keppra 500 mg BID to f/u with PCP for lab levels (2) Cardiomegaly: Assessment and plan: Discharged with Lasix 20 mg BID PRN for edema. Instructed patient to weigh daily. Take Lasix if swelling and and/or SOB. Patient also instructed to return to ED if SOB returns without relief from Lasix. Patient was not pleased with mail handler assistant she saw. Advised to return to PCP. (3) Dysuria: (4) Methadone dependence: (5) Elevated d-dimer: (6) Elevated brain natriuretic peptide (BNP) level: (7) Hematuria: Qualifiers: Hematuria type: unspecified type Qualified Code(s): R31.9 - Hematuria, unspecified DS: Summary Hospital Course Hospital Course: Patient admitted from ED where family brought patient in due to seizure like activity. Patient received fluids at 200 mls/hr for elevated CPK which were decreased yesterdy to 150 mls/hr due to CPK trending down. Patient had an episode of SOB during the morning with the slot shift manager nurses. She was diuresed with 40 mg of Lasix. Fluids were stopped. Patient was sitting up this morning in the chair in her room and reports she is ready to go home. There were no signs or symptoms of distress noted during interaction with patient. CPK is back to normal and patient has tolerated Keppra with no reported seizure like activity. She will D/C today. Status at Discharge Functional status at discharge: independent ambulation Overall status at discharge: patient is progressing back to baseline Time Spent with Patient Time attestation: Total time spent providing and/or coordinating discharge services: Exam Constitutional: normal general appearance, no apparent distress, no limitations and alert Vital Signs - 24 hr 07/02/24 11:50 07/02/24 16:00 07/02/24 16:06 Temperature 98.6 F 98.5 F Pulse Rate 76 Pulse Rate [Bilate ral] 52 L 53 L Respiratory Rate 20 20 Blood Pressure 152/67 Blood Pressure [Le ft Radial Artery] 152/67 167/70 Pulse Oximetry 100 95 Oxygen Delivery Me thod Room Air Room Air 07/02/24 20:00 07/02/24 22:40 07/03/24 00:00 Temperature 98.3 F 98.4 F Pulse Rate 48 L Pulse Rate [Bilate ral] 56 L 48 L Respiratory Rate 18 18 Blood Pressure 171/63 Blood Pressure [Le ft Radial Artery] 148/69 171/63 Pulse Oximetry 96 96 Oxygen Delivery [facility] 07/03/24 03:40 07/03/24 04:00 07/03/24 04:10 Temperature 98.2 F Pulse Rate Pulse Rate [Bilate ral] 51 L Respiratory Rate 18 Blood Pressure 156/68 156/68 Blood Pressure [Le ft Radial Artery] 156/68 Pulse Oximetry 96 Oxygen Delivery [facility] 07/03/24 07:40 Temperature 98.4 F Pulse Rate Pulse Rate [Bilate ral] 54 L Respiratory Rate 20 Blood Pressure Blood Pressure [Le ft Radial Artery] 143/58 Pulse Oximetry 95 Oxygen Delivery [facility] Room Air HENMT: normocephalic, head/scalp atraumatic, hearing grossly normal bilaterally, external ears normal, EACs normal, TMs normal bilaterally, external nose normal, oral mucous membranes normal and oropharynx normal Eyes: PERRL, EOMs intact bilaterally, conjunctivae normal, no scleral icterus and no papilledema Chest: inspection of chest normal Respiratory: breath sounds equal bilaterally, normal respiratory effort, clear to auscultation bilaterally, no wheezes, no rales and no retractions Cardiovascular: normal heart rate noted, regular rhythm noted, no gallop, no rub, no murmur and no JVD Gastrointestinal: abdomen normal to inspection, abdomen soft to palpation, nondistended and normoactive bowel sounds Genitourinary: no CVA tenderness Extremities: normal to inspection, normal to palpation, no tenderness and full ROM Skin: skin color normal, no rash, no lesions, no ecchymosis noted and no wounds DS: Data Data Completed and Pending Labs on day of discharge: Labs from last 24 hours 07/03/24 05:11 WBC 5.9 RBC 4.1 Hgb 11.8 L Hct 34.6 L MCV 84.3 MCH 28.7 MCHC 34.1 RDW 14.0 Plt Count 133 L MPV 9.5 Gran % 71.0 Lymph % (Auto) 19.2 L Mobile % (Auto) 8.3 Eos % (Auto) 1.1 Baso % (Auto) 0.4 Lymph # (Auto) 1.1 Mobile # (Auto) 0.5 L Eos # (Auto) 0.1 Baso # (Auto) 0.0 Absolute Gran (auto) 4.2 Sodium 138 Potassium 3.4 L Chloride 103.0 Carbon Dioxide 30 Anion Gap 5.0 BUN 10 Creatinine 0.8 Estimated GFR 84.8 Glucose 101 Calcium 8.9 Total Bilirubin 0.31 AST 30 ALT 46 Alkaline Phosphatase 63 Total Creatine Kinase 174 Total Protein 6.3 L Albumin 3.3 L Discharge Plan Discharge Disposition: Home, Self-Care Condition: Improved Discharge Medications: New levetiracetam [Keppra] 500 mg tablet 500 mg PO Q12H Qty: 60 0RF polyethylene glycol 3350 [Miralax] 17 gram/dose powder 17 g PO DAILY Qty: 510 0RF furosemide 20 mg tablet 20 mg PO BID Qty: 60 0RF Rx Instructions: PRN LEG SWELLING Continued lisinopril 10 mg tablet 10 mg PO DAILY Rx Instructions: Give 1 tablet by mouth once daily pantoprazole 40 mg tablet,delayed release (DR/EC) 40 mg PO QAM Rx Instructions: Give 1 tablet by mouth once in the morning acebutolol 200 mg capsule 200 mg PO BID Rx Instructions: Give 1 capsule by mouth two times daily hydroxyzine HCl 25 mg tablet 25 mg PO TID PRN (Reason: nausea and vomiting) Rx Instructions: Give 1 tablet by mouth three times daily as needed Discharge Orders: Discharge Order (Routine); Ordered 07/03/24 Ordered By: EVELIN WRIGHT Activity: increase activity as tolerated Diet: advance to your usual diet Interventions: Discharge Assessment Last Done: 07/03/24 09:57 MED/SURG & ICU Observation Charge Sheet Last Done: 07/03/24 10:02 Patient Instructions: New-Onset Seizure in Adults (DC) Activity Restrictions/Additional Instructions: increase water and fiber in diet urology and neurology follow as soon as possible PCP follow up in 3-7 days work on sleep and toileting hygeine needs bladder ultrasound and post void ultrasound looking for urinary retention vs chronic cystitis and polyps vs other etiology for recurrent UTI's and prophylatic measures Needs cardiology f/u Weigh daily Forms: Portal/Health Info Access Inst Follow-Ups: Dre Morgan [Other] - 07/12/24 10:00 am Provider,NO PCP [Physician] - Discharge Date/Time: 07/03/24 10:06
--- NOTE | 2024-07-05 15:51 | Event Note ---
Event Note Event Note: Late Entry d/t computer downtime: 07/03/24 @ 0222 Received call from CATALINO Perez Re: pt c/o wheezing and SOB when laying down flat. Pt currently on NS @ 150mL's/hr. RN reports 13.4lbs weight gain over past 48hrs. Unable to review I&O's d/t computer downtime. Pt remains sitting upright in recliner. No acute distress. Diminished BS's in bilateral bases, otherwise, clear. CXR (2V), stop fluids and 40mg IV lasix ordered. CXR shows no acute pulmonary process. .
== END 2024-07-03 10:06 | disposition home or self-care (01) ==
LOC: ED 20:52 → MS 20:52
PROVIDERS: ADMIT Nurse Practitioner Family; ATTEND Family Medicine